=== PATIENT | female | born 1970 | race African-American/Black ===

== ENCOUNTER 2024-09-29 07:00 | Day surgery (SDC) | payer MEDICAID, SELFPAY ==
--- NOTE | 2024-09-28 10:10 | EKG_ITS ---
[facility] Test Date: 2024-09-28 Pat Name: KOURTNEY DE LOS SANTOSDepartment: Room: - Gender: Female Line Up Examiner: THERESA : 1970 Requested By: Jaylan Perez Order Number: [id number] Reading MD: Jaylan Perez Measurements Intervals [place] Rate: 46 P: 41 MO: 175 QRS: 10 QRSD: 89 T: 12 QT: 435 QTc: 382 Interpretive Statements SINUS BRADYCARDIA WITH SINUS ARRHYTHMIA POSSIBLE LEFT ATRIAL ENLARGEMENT [-0.1mV P WAVE IN V1/V2] SEPTAL MYOCARDIAL INFARCTION , PROBABLY OLD [40+ ms Q WAVE IN V1/V2] No previous ECG available for comparison /[id number]/S0/[id number].pdf
[2024-09-28 10:20] VITALS: BMI 39.5
[2024-09-28 11:39] LABS: Basophils % (Auto) 1 % (0-2.5); Eosinophils % (Auto) 1 % (0-10); Hematocrit 38.1 % (36.0-46.0); Hemoglobin 12.4 g/dL (12.0-16.0); Immature Granulocytes % (Auto) 0 % (0-0); Immature Granulocytes Auto 0.02 Thou/mm3 (0.00-0.00); Lymphocytes # (Auto) 2.9 Thou/mm3 (1.0-4.8); Lymphocytes % (Auto) 39 % (10-50); Mean Corpuscular HGB Conc 32.5 g/dl (31.0-37.0); Mean Corpuscular Hemoglobin 29.5 pg (25.0-35.0); Mean Corpuscular Volume 91 fL (80-100); Monocytes # (Auto) 0.6 Thou/mm3 (0.0-0.8); Monocytes % (Auto) 8 % (0-12); Neutrophils # (Auto) 3.8 Thou/mm3 (1.8-7.7); Neutrophils % (Auto) 52 % (37-80); Nucleated Red Blood Cell % 0 /100 WBC (0); Platelet Count 260 Thou/mm3 (140-440); RDW Standard Deviation 48.2 fL (36.4-46.3); Red Blood Count 4.21 Miln/mm3 (4.00-5.20); White Blood Count 7.3 Thou/mm3 (3.6-11.0)
[2024-09-28 11:42] LABS: Partial Thromboplastin Time 28.2 Seconds (22.0-36.0); Prothrombin Time 10.9 Seconds (9.0-12.2)
[2024-09-28 11:46] LABS: Alanine Aminotransferase 15 U/L (10-49); Albumin, Serum 3.9 gm/dL (3.5-5.0); Albumin/Globulin Ratio 1.5 (1.2-2.2); Alkaline Phosphatase 69 U/L (46-116); Anion Gap 5 (7-16); Aspartate Amino Transferase 22 U/L (0-34); BUN/Creatinine Ratio 12 Ratio (12-20); Bilirubin,Total 0.5 mg/dL (0.3-1.2); Blood Urea Nitrogen 12 mg/dL (9-23); Calcium 9.1 mg/dL (8.3-10.6); Calcium (Corrected) 9.2 mg/dL (8.5-10.1); Carbon Dioxide 32.1 mMol/L (20.0-31.0); Chloride 104 mMol/L (98-107); Estimated Creatinine Clearance 85.4 mL/min (>60); Globulin 2.6 gm/dL (2.3-3.5); Glucose 100 mg/dL (74-106); Osmolality,Calculated 280 (275-295); Potassium 3.4 mMol/L (3.4-5.1); Sodium 141 mMol/L (136-145); Total Protein 6.5 gm/dL (5.7-8.2); eGFR > 60 See Note
--- NOTE | 2024-09-28 14:03 | ESHP_ITS ---
RE: KOURTNEY DE LOS SANTOS : 1970 DATE OF ADMISSION: 09/29/2024 The patient came to my office on 09/28/2024 for detailed preoperative history and physical examination. HISTORY OF PRESENT COMPLAINT: The patient has got pain in the right shoulder. This is going on for more than a year. The patient graded intensity of pain at 8. Range of motion is severely restricted. The patient further added that she had physical therapy and it did not help her at all. Quality of life and activity of daily living is affected. PAST MEDICAL HISTORY: The patient has a history of high blood pressure. No history of diabetes mellitus, asthma, seizure, chest pain, myocardial infarction, bleeding disorder. PAST SURGICAL HISTORY: Includes left leg surgery, appendectomy, hydro ablation, liver resection. DRUG HISTORY: The patient is on atorvastatin, hydrochlorothiazide, famotidine, levothyroxine, and metoprolol ALLERGIES: LISINOPRIL. FAMILY HISTORY AND SOCIAL HISTORY: The patient denies smoking and drinking, and is not working. PHYSICAL EXAMINATION: GENERAL: Normal built lady. VITAL SIGNS: Pulse is 68 per minute. Blood pressure is 132/84 mmHg. NECK: Soft, supple. No mass felt. Trachea is centrally placed. CARDIOVASCULAR SYSTEM: First and second heart sounds normal. No murmur heard. RESPIRATORY SYSTEM: Bilateral vesicular breath sounds. CHEST: Clear. ABDOMEN: Soft. No mass felt. Bowel sounds are present. EXTREMITIES: Right shoulder examination reveals tenderness 1+ at AC joint. Active range of motion 0 to 80 degrees of abduction and 0 to 90 degrees of forward flexion. Internal rotation is severely restricted. Shira test, shoulder impingement test and drop arm test is positive. DIAGNOSTIC DATA: MRI scan confirmed torn rotator cuff with DJD at AC joint. Since the patient is symptomatic, therefore, right rotator cuff repair with Samantha procedure was discussed and advised. ASSESSMENT AND PLAN: Risk of the anesthesia was explained and that includes, but not limited to reaction to anesthetic agents, cardiac arrest and rarely it may be fatal. Risk with operations includes infection and if that happens, the patient may need further surgical procedure. Other risks include delayed healing, wound dehiscence, etc. No guarantee is given regarding outcome of the procedure and relief of symptoms. The patient is also cleared for surgical procedure. Surgery booked for 09/29/2024. Appropriate lab work is done. DT: 12:50:54 TT: 14:01:00 Ref: [id number] - TID: [id number]
--- NOTE | 2024-09-28 14:28 | SUR.PREOP ---
Pt notified to come in at 0700 tomorrow for surgery.
[2024-09-29] VITALS (7 sets, daily range): BP systolic 133–172; BP diastolic 63–96; PULSE 47–105; RESP 12–19; TEMP 36.2–36.3; O2SAT 98–100; BMI 39.1
--- NOTE | 2024-09-29 10:27 | SUR.PHASEI ---
pt received from OR in recovery bay 6. pt asleep but responds to voice, breathing unlabored on room air. v/s stable. pt dressing to right shoulder cdi. report received from Heath CARDENAS and Dr. Landa.
--- NOTE | 2024-09-29 10:40 | PD.SUROPNT ---
Date of Procedure 09/29/24 Pre Op Diagnosis 1. Right rotator cuff tear 2 right shoulder impingement syndrome Post Op Diagnosis Same Procedure 1. Excision lateral end of the clavicle 2 excision coracoacromial ligament 3 acromioplasty 4 repair of rotator cuff 5. Manipulation under anesthesia Findings Patient has significant DJD at AC joint. There was anterior and lateral osteophytes coming out from the acromial process. There is a tear of the rotator cuff which was about 1 cm in size. However most of the fibers were attached to the greater tuberosity. Procedure Description The patient was given general endotracheal anesthesia. Shoulder block was also given once satisfactory anesthesia was achieved patient was put in about 45?? sitting position with sandbag underneath the right shoulder blade. The part was thoroughly prepped and draped. A skin incision was made at the AC joint extending proximally towards the neck for a half inches and distally towards the arm for about couple of inches. Deeper dissection was carried out. Bleeding vessels were electrocoagulated as and when encountered. The soft tissue was reflected. Following that AC joint was exposed and AC joint was exposed. The deltoid muscle was reflected from the anterior and lateral aspect of the acromial process. There was a 3 to 4 mm size osteophytes coming out from the anterior aspect of the acromial process. Beside that size 2 mm osteophyte was coming out from the lateral aspect. Following that a periosteal elevator was placed underneath the lateral end of the clavicle and lateral 3-4 mm was excised. The coracoacromial ligament was removed. Following that anterior 2 mm along with the osteophyte from the anterior aspect and lateral 2 mm along with the osteophytes on the lateral aspect of the condyle process was excised with the help of saw. With the help of curved osteotome the undersurface of the Acromial processes was chiseled out. That made more room between the superior surface of the head of the humerus and undersurface of the acromial process. Following that the rotator cuff was inspected. It revealed an oval tear, however most of the fibers were attached to the greater tuberosity. Wound was irrigated with antibiotic solution every 4-5 minutes. The right shoulder was manipulated at this time. Full range of abduction and forward flexion was achieved. The rotator cuff tear was repaired with 2-0 Vicryl. 2 drill holes were made on the acromial process and deltoid muscle was stitched back to it. Some reinforcement sutures were placed. The subcutaneous tissue was then closed with the help of 2-0 Vicryl and 3-0 Vicryl in layers. The skin was closed with daren. After cleaning the wound with hydrogel proximal solution and sterile dressing was applied. Patient was taken to the recovery room in good condition. Estimated blood loss 20 mL. Prognosis in this case is good. Anesthesia GETA and other Pathology / specimen None Estimated Blood Loss 15 Surgeon Jaylan Wilson MD Surgical Staff Operation Date: 09/29/24 09:15 Case Staff Anesthesiologist: Francesco Landa
[2024-09-29] MEDS: fentaNYL CIT INJ 50 mCg/ML AMP 2ML IV (10:59)
--- NOTE | 2024-09-29 11:25 | SUR.PHASEII ---
pt able to tolerate oral fluids without difficulty swallowing or nausea/vomiting.
--- NOTE | 2024-09-29 11:36 | SUR.PHASEII ---
pt awake and alert, breathing unlabored on room air. v/s stable. pt dressing to right shoulder cdi. pt able to ambulate to wheelchair with steady gait. d/c instructions given with daughter Cortney in room, all questions answered. pt d/c via wheelchair with all belongings.
--- NOTE | 2024-10-03 12:51 | PD.ANESPROG ---
Documentation for date of: 10/03/24 POST ANESTHESIA NOTE: Patient had general LMA anesthesia and R interscalene nerve block for R rotator cuff surgery on 09/29/24. I just called her number for follow up but no answer. Francesco Landa MD Anesthesia Progress Note Progress Note Most recent Vital Signs: Last Vital Signs Temp 97.2 F 09/29/24 11:15 Pulse 74 09/29/24 11:15 Resp 17 09/29/24 11:15 BP 157/96 H 09/29/24 11:15 Pulse Ox 98 09/29/24 11:15
== END 2024-09-29 11:36 | disposition home or self-care (01) ==
PROVIDERS: Anesthesiology; PCP Family Medicine; Referring Provider Orthopaedic Surgery; Visit Provider Orthopaedic Surgery
PROC: (CPT 23412; principal; 2024-09-29 09:00)
DX: M75.101 Unspecified rotator cuff tear or rupture of right shoulder, not specified as traumatic (principal); M75.41 Impingement syndrome of right shoulder; M19.011 Primary osteoarthritis, right shoulder; M25.711 Osteophyte, right shoulder; I10 Essential (primary) hypertension; E78.5 Hyperlipidemia, unspecified; E03.9 Hypothyroidism, unspecified; Z90.49 Acquired absence of other specified parts of digestive tract
CPT/HCPCS: 23412; 23130; 23120; 36415; 80048; 80053; 85025; 85610; 85730; 93005; A4217; A4649; J1100; J2250; J2704; J2765; J2795; J3010; J3490; J1596